=== PATIENT | female | born 1950 | race Caucasian/White ===

== ENCOUNTER 2018-10-13 05:25 | Inpatient (IN) | payer OTHER, MEDICARE ==
[2018-10-06 13:20] LABS: HEMATOCRIT 41.5 % (37.0-47.0); HEMOGLOBIN 13.9 gm/dL (12.0-15.0); MCH 29.8 pg (26.0-34.0); MCHC 33.5 g/dL (28.0-37.0); RBC 4.66 mil/uL (4.20-5.00); RDW 13.5 % (10.5-14.5); URINE BILIRUBIN NEGATIVE (Negative); URINE BLOOD 1+ (Negative); URINE CLARITY CLEAR; URINE COLOR YELLOW; URINE GLUCOSE-RANDOM* NEGATIVE (Negative); URINE KETONES NEGATIVE (Negative); URINE LEUKOCYTES-REFLEX NEGATIVE (Negative); URINE NITRITE-REFLEX NEGATIVE (Negative); URINE PROTEIN (DIPSTICK) NEGATIVE (Negative); URINE SPECIFIC GRAVITY 1.025 (1.005-1.035); URINE UROBILINOGEN 0.2 E.U./dl (0.2-1.0); WBC 7.6 thou/uL (4.0-11.0)
[2018-10-06 13:31] LABS: BACTERIA-REFLEX None Seen /HPF (None Seen); CASTS None Seen /LPF (None Seen); CRYSTALS None Seen /LPF (None Seen); SQUAMOUS 4-10 Moderate /LPF (0-3); URINE RBC 3-10 Few /HPF (0-2); URINE WBC-REFLEX None Seen /HPF (0-5)
[2018-10-06 13:33] LABS: ALBUMIN 4.1 g/dL (3.4-5.0); CALCIUM 10.2 mg/dL (8.5-10.1); POTASSIUM 4.6 mmol/L (3.5-5.1)
[~2018-10-13] VITALS: Ht 157.5 cm; Wt 76.7 kg
--- NOTE | ~2018-10-13 | O ---
[facility] [place] [address] OPERATIVE REPORT Name: HEMANTHEVANGELINA Brigitte Room #: 454-P [facility] IN M.R.#: [id number] Admission: 10/13/18 Attend Phys: Frank More MD Discharge: 10/14/18 Date of : 46 Report #: [id number] THIS REPORT FOR: //name// CC: Zoya More DATE OF SERVICE: 10/13/2018 PREOPERATIVE DIAGNOSIS: Right knee valgus osteoarthritis. POSTOPERATIVE DIAGNOSIS: Right knee valgus osteoarthritis. PROCEDURE: Right total knee arthroplasty using Navio-robotic assistance. SURGEON: Frank More MD. RADIOLOGIST PHYSICIAN: Hilda García PA-C. INDICATIONS FOR RADIOLOGIST PHYSICIAN: Throughout the case, extensive retraction and manipulation of the knee was required. This was afforded to me by my clinical physician assistant. ANESTHESIA: LMA with an adductor canal block. IMPLANTS: [employer] size 5 Legion cobalt chrome posterior stabilized femur, size 3 tibia, size 12 polyethylene and a size 32 patella. TOURNIQUET TIME: 66 minutes. ESTIMATED BLOOD LOSS: 25 mL. COMPLICATIONS: None. SPECIMENS: None. CONDITION UPON LEAVING THE OPERATING ROOM: Stable. INDICATION FOR PROCEDURE: The patient is a 67-year-old female with right knee valgus osteoarthritis. She had failed conservative measures for this and after discussion with her, she elected for right total knee arthroplasty. DESCRIPTION OF PROCEDURE: Risks, benefits, alternatives, complications were discussed in detail with the patient including but not limited to risk of anesthesia, risk of damage to nerves, arteries, blood vessels, risk for infection, bleeding, risk for continued knee pain and need for reoperation. Informed consent was obtained from the patient. Right knee was appropriately marked in the preoperative holding area. IV clindamycin was given for [facility] [address] [place] [address] OPERATIVE REPORT Name: EVANGELINA SAXENA Room #: 454-P [facility] IN M.R.#: [id number] Admission: 10/13/18 Attend Phys: Frank More MD Discharge: 10/14/18 Date of : 46 Report #: [id number] preoperative antibiotics. Adductor canal block placed by Anesthesia. She was brought to the operating room and placed in supine position on the operating room table. LMA anesthesia was induced without complication. Tourniquet was placed on the right thigh. Right lower extremity was prepped and draped in normal sterile fashion. Timeout was performed properly identifying the patient and procedure as well as the instrumentation and implants. All in the operating room were in agreement. Right lower extremity was exsanguinated, tourniquet was inflated. Tourniquet time was 66 minutes. Standard midline approach to knee was made with 10 blade through the skin. Dissection was taken down sharply to the fascia and deep flaps were developed medially and laterally. Fresh 10 blade was used to make a medial parapatellar arthrotomy and the knee was inspected. There was severe lateral compartment disease and moderate medial and patellofemoral disease. It was decided to proceed with total knee arthroplasty. ACL and PCL were removed sharply. Reference pins were placed in the femur and the tibia and the knee was then digitally mapped using the [employer] robotic system. Intraoperative plan was made and we sized a size 5 femur and a size 3 tibia. After acceptance of the intraoperative plan, the distal femoral cut was made with a Navio renetta and a 4-in-1 cutting block was placed. Anterior and posterior chamfer cuts were made. Attention was then turned to the tibia. The remainder of the menisci removed with Bovie cautery. The tibial resection guide was pinned in place using the [employer] navigation system and tibial resection was made. Flexion and extension gaps were then checked and found to have good balance with flexion and extension both medially and laterally. Tibia was sized, found to be a size 3. A size 3 tibial trial was placed and then punched. A size 5 femoral trial was placed and the box cut was made. This was then trialed with a size 10, 11 and then 12 polyethylene and size 12 polyethylene had the best balance throughout range of motion both manually as well as digitally. 9 mm was taken off the posterior surface of the patella and a size 32 patellar trial button was placed. Knee was taken through range of motion, found to have good patellar tracking. Trial components were removed. Bony ends were thoroughly irrigated with normal saline. A final size 3 tibia, size 5 Legion cobalt chrome posterior stabilized femur and a size 32 patella were cemented in place using standard cementation techniques. While the cement cured, a periarticular injection consisting of morphine, ropivacaine, epinephrine and Toradol was placed around the knee joint capsule. After the cement cured, the tourniquet was deflated. Hemostasis was obtained with Bovie cautery. Final size 12 polyethylene was placed. A gram of vancomycin was placed deep in the joint and the fascia was closed with 0 Vicryl, skin was closed with 2-0 Vicryl, 3-0 Monocryl and a BEATA dressing was applied. The patient tolerated this procedure well and went to recovery room under care of anesthesia postoperatively. <ELECTRONICALLY SIGNED> By: Frank More MD 10/18/18 1713 [id number] 1700 Frank More MD /nt
[~2018-10-13 05:25] MED LIST: ALENDRONATE SOD35 MG PO; ALPHA LIPOIC A300 MG PO; CALCIUM 600+D1 EAC1 PO; CELEBREX 200 M200 M1 PO; CO Q-10100 MG PO; COLLAGEN PLUS1 EACH PO; MELATONIN3 MG PO; MOVE FREE JOIN1 EACH PO; OMEGA 3 500 SO1 EACH PO; POTASSIUM99 M1 PO; PRAVACHOL20 MG PO; RANITIDINE 150150 M1 PO; TURMERIC COMPL1 EACH PO; VITAMIN D32000 UNIT PO; [UNRECOGNIZED DRUG - OTHER] PO; [UNRECOGNIZED DRUG - REMARK] PO
[2018-10-13 11:15] VITALS: BP 139/66
[2018-10-13 16:13] VITALS: BP 122/48; BP 147/86
[2018-10-13 19:02] VITALS: BP 105/65
[2018-10-14 00:45] VITALS: BP 105/65
[2018-10-14 02:40] VITALS: BP 110/62
[2018-10-14 04:58] LABS: HEMATOCRIT 34.8 % (37.0-47.0); HEMOGLOBIN 11.5 gm/dL (12.0-15.0); MCH 29.6 pg (26.0-34.0); MCHC 33.1 g/dL (28.0-37.0); MCV 89.3 fL (80.0-100.0); RBC 3.9 mil/uL (4.20-5.00); RDW 13.3 % (10.5-14.5); WBC 16.1 thou/uL (4.0-11.0)
[2018-10-14 07:15] VITALS: BP 99/65
[2018-10-14 10:56] VITALS: BP 99/65
[2018-10-14] MEDS ORDERED: NEURONTIN 300300 M1 PO (11:47)
[2018-10-14] MEDS ORDERED: TRI-BUFFERED A325 M1 PO (11:47)
[2018-10-14 15:26] VITALS: BP 99/65
== END 2018-10-14 16:00 | disposition home health service (06) | DRG 470 ==
LOC: 4W 05:25 → TBA 05:25 → PRE 05:30 → 4W 16:29 → ENTRNSPT 10-14 15:56 → EDTRNSPT 10-14 15:58 → EDTRNSPTSTS 10-14 15:59 → 4W 10-14 16:00
PROVIDERS: Orthopaedic Surgery
DX: M17.11 Unilateral primary osteoarthritis, right knee (principal); Z79.82 Long term (current) use of aspirin; Z79.899 Other long term (current) drug therapy; Z88.0 Allergy status to penicillin; Z88.8 Allergy status to other drugs, medicaments and biological substances; Z23 Encounter for immunization
CPT/HCPCS: 10047; 50010; 50101; 50415; 50954; 51130; 51225; 53000; 53078; 53364; 54118; 56527; 56528; 57095; 57103; 57109; 57110; 57113; 57127; 57180; 62110; 62900; 64042; 70005